=== PATIENT | female | born 1950 | race Caucasian/White ===

== ENCOUNTER 2022-05-13 13:38 | Outpatient (CLI) | payer BC | END 2022-05-13 13:39 | disposition home or self-care (01) | LOC: TBSIIMAG 13:38 | PROVIDERS: ATTEND Physician Assistant | DX: S16.1XXA Strain of muscle, fascia and tendon at neck level, initial encounter (principal); S06.9X0A Unspecified intracranial injury without loss of consciousness, initial encounter; S13.4XXA Sprain of ligaments of cervical spine, initial encounter; R42 Dizziness and giddiness; M48.02 Spinal stenosis, cervical region; M48.03 Spinal stenosis, cervicothoracic region; G31.9 Degenerative disease of nervous system, unspecified; R90.89 Other abnormal findings on diagnostic imaging of central nervous system | CPT/HCPCS: 70551; 72141 ==